=== PATIENT | female | born 1965 | race African-American/Black ===

== ENCOUNTER 2017-06-13 20:43 | Observation (INO) | payer MEDICAID, SELFPAY | END 2017-06-15 09:45 | disposition home or self-care (01) | DRG 195 | PROVIDERS: Admitting Provider Internal Medicine Adolescent Medicine; Emergency Provider Emergency Medicine; Family Provider Family Medicine; Visit Provider Internal Medicine Adolescent Medicine | DX: J11.00 Influenza due to unidentified influenza virus with unspecified type of pneumonia (principal); J44.9 Chronic obstructive pulmonary disease, unspecified; I10 Essential (primary) hypertension; Z72.0 Tobacco use | CPT/HCPCS: 36415; 71020; 80053; 82803; 82962; 83605; 83735; 83880; 84484; 85025; 85378; 86738; 87040; 87070; 87205; 87804; 87880; 93005; 94640; 94760; 96365; 96367; 99285; J0456 ==